=== PATIENT | female | born 1965 | race Two or more races ===

== ENCOUNTER 2018-03-17 10:10 | Outpatient (CLI) | payer OTHER ==
[2018-03-31] MEDS ORDERED: [UNRECOGNIZED DRUG - OTHER] PO (12:12)
[2018-03-31] MEDS ORDERED: EFFEXOR XR37.5 MG PO (12:12)
[2018-03-31] MEDS ORDERED: AVALIDE 300-121 EACH PO (12:13)
[2018-03-31] MEDS ORDERED: [UNRECOGNIZED DRUG - OTHER] PO (12:13)
[2018-03-31] MEDS ORDERED: TROPOL XL PO (12:14)
[2018-03-31] MEDS ORDERED: APRESOLINE 10MG10 MG PO (12:14)
[2018-03-31] MEDS ORDERED: ZYRTEC10 M3 PO (12:15)
[2018-04-11] MEDS ORDERED: OXICONAZOLE NIT30 GM (23:45)
[2018-04-11] MEDS ORDERED: TRAM1TAB98 (23:45)
[2018-04-12] MEDS ORDERED: PERCOCET 5-3251 EACH PO (01:50)
== END 2018-03-17 10:20 | disposition home or self-care (01) ==
LOC: LAB 10:10
DX: D64.89 Other specified anemias (principal); E88.89 Other specified metabolic disorders; D68.8 Other specified coagulation defects; N39.0 Urinary tract infection, site not specified; Z76.89 Persons encountering health services in other specified circumstances; I49.8 Other specified cardiac arrhythmias

== ENCOUNTER 2018-03-22 15:04 | Outpatient (CLI) | payer OTHER ==
[2018-03-31] MEDS ORDERED: [UNRECOGNIZED DRUG - OTHER] PO (12:12)
[2018-03-31] MEDS ORDERED: EFFEXOR XR37.5 MG PO (12:12)
[2018-03-31] MEDS ORDERED: AVALIDE 300-121 EACH PO (12:13)
[2018-03-31] MEDS ORDERED: [UNRECOGNIZED DRUG - OTHER] PO (12:13)
[2018-03-31] MEDS ORDERED: TROPOL XL PO (12:14)
[2018-03-31] MEDS ORDERED: APRESOLINE 10MG10 MG PO (12:14)
[2018-03-31] MEDS ORDERED: ZYRTEC10 M3 PO (12:15)
[2018-04-11] MEDS ORDERED: OXICONAZOLE NIT30 GM (23:45)
[2018-04-11] MEDS ORDERED: TRAM1TAB98 (23:45)
[2018-04-12] MEDS ORDERED: PERCOCET 5-3251 EACH PO (01:50)
== END 2018-03-22 16:32 | disposition home or self-care (01) ==
LOC: RAD 501 15:04
DX: M76.62 Achilles tendinitis, left leg (principal); M85.60 Other cyst of bone, unspecified site

== ENCOUNTER → 2018-04-11 | Day surgery (SDC) | payer OTHER ==
[~2018-04-11] MED LIST: APRESOLINE 10MG10 MG PO; AVALIDE 300-121 EACH PO; EFFEXOR XR37.5 MG PO; OXICONAZOLE NIT30 GM; PERCOCET 5-3251 EACH PO; TRAM1TAB98; TROPOL XL PO; ZYRTEC10 M3 PO; [UNRECOGNIZED DRUG - OTHER] PO; [UNRECOGNIZED DRUG - OTHER] PO
== END | disposition home or self-care (01) ==
LOC: ADM 04-05 14:30 → CIR.AMB 07:00
DX: M76.62 Achilles tendinitis, left leg (principal); M85.672 Other cyst of bone, left ankle and foot

== ENCOUNTER → 2018-04-11 | Emergency (ER) | payer OTHER ==
[~2018-04-11] VITALS: Ht 170.2 cm; Wt 108.9 kg
== END | disposition home or self-care (01) ==
LOC: ER 23:30
DX: G89.28 Other chronic postprocedural pain (principal)

== ENCOUNTER 2018-06-16 14:58 | Outpatient (CLI) | payer OTHER | END 2018-06-16 16:52 | disposition home or self-care (01) | LOC: RAD 14:58 | DX: M25.572 Pain in left ankle and joints of left foot (principal) ==

== ENCOUNTER 2018-07-17 06:10 | Inpatient (IN) | payer OTHER ==
[~2018-07-17] VITALS: Ht 170.2 cm; Wt 250.0 kg
[2018-07-19] MEDS ORDERED: TOPROL XL25 M1 PO (11:43)
[2018-07-19] MEDS ORDERED: CLONAZEPAM0.5 MG PO ×2 (11:44→11:45)
== END 2018-07-20 09:21 | disposition home or self-care (01) | DRG 500 ==
LOC: CIR.AMB 06:10 → O/R 07-18 16:13 → MEDI 07-18 16:20 → SURG 07-18 21:16
PROC: 0LB24ZZ Excision of Left Shoulder Tendon, Percutaneous Endoscopic Approach (ICD-10-PCS; principal; 2018-07-18)
PROC: 0RNK4ZZ Release Left Shoulder Joint, Percutaneous Endoscopic Approach (ICD-10-PCS; 2018-07-18)
PROC: 0RCK4ZZ Extirpation of Matter from Left Shoulder Joint, Percutaneous Endoscopic Approach (ICD-10-PCS; 2018-07-18)
PROC: 0PBB4ZZ Excision of Left Clavicle, Percutaneous Endoscopic Approach (ICD-10-PCS; 2018-07-18)
PROC: 0LS44ZZ Reposition Left Upper Arm Tendon, Percutaneous Endoscopic Approach (ICD-10-PCS; 2018-07-18)
PROC: 0LQ24ZZ Repair Left Shoulder Tendon, Percutaneous Endoscopic Approach (ICD-10-PCS; 2018-07-18)
PROC: 4A033R1 Measurement of Arterial Saturation, Peripheral, Percutaneous Approach (ICD-10-PCS; 2018-07-18)
PROC: 3E0F7GC Introduction of Other Therapeutic Substance into Respiratory Tract, Via Natural or Artificial Opening (ICD-10-PCS; 2018-07-19)
DX: M75.112 Incomplete rotator cuff tear or rupture of left shoulder, not specified as traumatic (principal); J95.821 Acute postprocedural respiratory failure; J81.1 Chronic pulmonary edema; J95.89 Other postprocedural complications and disorders of respiratory system, not elsewhere classified; M65.812 Other synovitis and tenosynovitis, left shoulder; M75.22 Bicipital tendinitis, left shoulder; R09.02 Hypoxemia

== ENCOUNTER 2019-08-07 14:40 | Inpatient (IN) | payer OTHER ==
[~2019-08-07] VITALS: Ht 170.2 cm; Wt 111.1 kg
[~2019-08-07 14:40] MED LIST changes: +CLONAZEPAM0.5 MG PO; +HYDRALAZINE HCL25 MG PO; +TOPROL XL25 M1 PO; +TOPROL XL50 M1 PO; +[UNRECOGNIZED DRUG - OTHER] PO
[2019-08-13] MEDS ORDERED: VENLAFAXINE HCL75 MG PO (09:14)
[2019-08-13] MEDS ORDERED: VENLAFAXINE HC150 MG PO (09:15)
[2019-08-13] MEDS ORDERED: RISPERIDONE0.5 MG PO (09:16)
== END 2019-08-15 16:19 | disposition home or self-care (01) | DRG 482 ==
LOC: O/R 08-13 07:56 → SURH 08-13 11:07
PROVIDERS: ADMIT Orthopaedic Surgery
PROC: 0QS604Z Reposition Right Upper Femur with Internal Fixation Device, Open Approach (ICD-10-PCS; principal; 2019-08-13 11:15)
DX: S72.044A Nondisplaced fracture of base of neck of right femur, initial encounter for closed fracture (principal); M16.11 Unilateral primary osteoarthritis, right hip; I10 Essential (primary) hypertension

== ENCOUNTER 2019-08-23 12:11 | Outpatient (CLI) | payer OTHER ==
[~2019-08-23 12:11] MED LIST changes: +RISPERIDONE0.5 MG PO; +VENLAFAXINE HC150 MG PO; +VENLAFAXINE HCL75 MG PO
== END 2019-08-23 12:14 | disposition home or self-care (01) ==
LOC: RAD 12:11
DX: S72.011D Unspecified intracapsular fracture of right femur, subsequent encounter for closed fracture with routine healing (principal)

== ENCOUNTER → 2021-07-21 | Outpatient (CLI) | payer OTHER | END | disposition home or self-care (01) | LOC: RAD 15:46 | PROVIDERS: ATTEND Orthopaedic Surgery | DX: M25.551 Pain in right hip (principal) ==

== ENCOUNTER 2021-07-23 10:19 | Outpatient (CLI) | payer OTHER | END 2021-07-23 10:39 | disposition home or self-care (01) | LOC: TOM 10:19 | PROVIDERS: ATTEND Orthopaedic Surgery | DX: M25.551 Pain in right hip (principal) ==

== ENCOUNTER 2022-06-07 09:09 | Outpatient (CLI) | payer OTHER ==
[2022-06-07] MEDS ORDERED: DESVENLAFAXINE50 MG (13:27)
[2022-06-07] MEDS ORDERED: AZOR 5-40 MG T1 EACH (13:27)
== END 2022-06-07 15:53 | disposition home or self-care (01) ==
LOC: LAB 09:09
PROVIDERS: ATTEND Orthopaedic Surgery
DX: D64.9 Anemia, unspecified (principal); E88.9 Metabolic disorder, unspecified; D68.8 Other specified coagulation defects; N39.0 Urinary tract infection, site not specified; A49.02 Methicillin resistant Staphylococcus aureus infection, unspecified site; I10 Essential (primary) hypertension; I49.9 Cardiac arrhythmia, unspecified; Z76.89 Persons encountering health services in other specified circumstances

== ENCOUNTER 2022-07-12 09:38 | Outpatient (CLI) | payer OTHER ==
[~2022-07-12 09:38] MED LIST changes: +AZOR 5-40 MG T1 EACH; +DESVENLAFAXINE50 MG
== END 2022-07-12 09:39 | disposition home or self-care (01) ==
LOC: LAB 09:38
PROVIDERS: ATTEND Orthopaedic Surgery
DX: N39.0 Urinary tract infection, site not specified (principal); I10 Essential (primary) hypertension; M25.511 Pain in right shoulder; M25.112 Fistula, left shoulder; D64.9 Anemia, unspecified; E83.42 Hypomagnesemia; E03.9 Hypothyroidism, unspecified

== ENCOUNTER 2022-08-17 10:28 | Day surgery (SDC) | payer OTHER ==
[~2022-08-17] VITALS: Ht 170.2 cm; Wt 104.3 kg
== END 2022-08-17 19:25 | disposition home or self-care (01) ==
LOC: CIR.AMB 10:28
PROVIDERS: ATTEND Orthopaedic Surgery
DX: M75.121 Complete rotator cuff tear or rupture of right shoulder, not specified as traumatic (principal); M75.21 Bicipital tendinitis, right shoulder; M24.111 Other articular cartilage disorders, right shoulder; Z91.041 Radiographic dye allergy status; I10 Essential (primary) hypertension; G47.33 Obstructive sleep apnea (adult) (pediatric)

== ENCOUNTER → 2022-12-27 09:33 | Outpatient (CLI) | payer OTHER ==
[~2022-12-27] VITALS: Ht 170.2 cm; Wt 102.1 kg
== END | disposition home or self-care (01) ==
LOC: LAB 09:33
PROVIDERS: ATTEND Orthopaedic Surgery
DX: D64.89 Other specified anemias (principal); E88.89 Other specified metabolic disorders; D68.8 Other specified coagulation defects; N39.0 Urinary tract infection, site not specified; A49.02 Methicillin resistant Staphylococcus aureus infection, unspecified site; E11.9 Type 2 diabetes mellitus without complications; Z76.89 Persons encountering health services in other specified circumstances; I49.9 Cardiac arrhythmia, unspecified; I10 Essential (primary) hypertension

== ENCOUNTER 2023-01-06 12:30 | Inpatient (IN) | payer OTHER ==
[~2023-01-06] VITALS: Ht 170.2 cm; Wt 102.1 kg
[2023-01-07] MEDS ORDERED: CLONAZEPAM0.5 MG PO (08:43)
[2023-01-07] MEDS ORDERED: CRESTOR10 MG PO (08:43)
[2023-01-13] MEDS ORDERED: GABAPENTIN100 M2 (10:53)
[2023-01-13] MEDS ORDERED: DICLOFENAC POTA50 MG (10:53)
[2023-01-13] MEDS ORDERED: XARELTO10 M1 (10:53)
[2023-01-13] MEDS ORDERED: CELECOXIB200 MG (10:53)
[2023-01-13] MEDS ORDERED: DESVENLAFAXINE50 M3 (10:53)
== END 2023-01-14 17:04 | disposition home or self-care (01) | DRG 470 ==
LOC: O/R 01-11 05:50 → SURG 01-11 05:50 → SURH 01-11 07:00 → SURG 01-11 14:20
PROVIDERS: ADMIT Orthopaedic Surgery; ATTEND Orthopaedic Surgery
PROC: 0SRB0JZ Replacement of Left Hip Joint with Synthetic Substitute, Open Approach (ICD-10-PCS; principal; 2023-01-11 07:00)
DX: M16.12 Unilateral primary osteoarthritis, left hip (principal)

== ENCOUNTER 2023-03-02 11:34 | Outpatient (CLI) | payer OTHER ==
[~2023-03-02 11:34] MED LIST changes: +CELECOXIB200 MG; +CRESTOR10 MG PO; +DESVENLAFAXINE50 M3; +DICLOFENAC POTA50 MG; +GABAPENTIN100 M2; +XARELTO10 M1
== END 2023-03-02 11:42 | disposition home or self-care (01) ==
LOC: RAD 11:34
PROVIDERS: ATTEND Orthopaedic Surgery
DX: M25.552 Pain in left hip (principal); M25.562 Pain in left knee

== ENCOUNTER 2024-01-19 10:40 | Outpatient (CLI) | payer OTHER | END 2024-01-19 10:48 | disposition home or self-care (01) | LOC: RAD 10:40 | PROVIDERS: ATTEND Orthopaedic Surgery | DX: M25.561 Pain in right knee (principal); M25.552 Pain in left hip ==

== ENCOUNTER 2024-09-26 08:20 | Outpatient (CLI) | payer OTHER | END 2024-09-26 08:23 | disposition home or self-care (01) | LOC: RAD 08:20 | PROVIDERS: ATTEND Orthopaedic Surgery | DX: M79.644 Pain in right finger(s) (principal) ==